=== PATIENT | female | born 1985 | race African-American/Black ===

== ENCOUNTER 2020-08-19 16:09 | Inpatient (IN) | payer OTHER, SELFPAY ==
[~2020-08-19] VITALS: Ht 154.9 cm; Wt 106.6 kg
[~2020-08-19 16:09] MED LIST: NORE1TAB74 PO
[2020-08-19 16:36] VITALS: BP_SYST 136
--- NOTE | 2020-08-19 16:45 | NUR ---
Patient to ER bed 05 to gown for evaluation. Side rails up.
--- NOTE | 2020-08-19 17:04 | NUR ---
Patient AAO and ambulatory arrived to ED stating she received abnormal labs from her PCP and was recommeneded to come nearest ER for infusion. Patient stated feeling tired for the past days. stated having 0/10 pain on the pain scale. VSS. Denies having SOB or chest pain. Waiting for MD evaluation.
--- NOTE | 2020-08-19 17:10 | NUR ---
# 18 gauge angiocath placed to Left AC. Use of asceptic technique. Opsite placed over site. Blood return noted. Blood for lab drawn from site. Flushed with 10 cc of normal saline. No evidence of infiltration noted. Patient tolerated well.
--- NOTE | 2020-08-19 17:10 | NUR ---
labs drawn from PIV start. sent to lab for analysis.
--- NOTE | 2020-08-19 17:59 | NUR ---
Dr. Borja at bedside for patient evaluation.
[2020-08-19] MEDS ORDERED: NACL 0.9% 1,000 ML IV ONE (18:15)
[2020-08-19 18:18] LABS: BASOPHILS # (AUTO) 0.1 K/uL (0.0-0.2); EOSINOPHILS # (AUTO) 0.4 K/uL (0.0-0.4); HEMATOCRIT 23.7 % (36-48); LYMPHOCYTES # (AUTO) 2.3 K/uL (1.0-5.5); MEAN CORPUSCULAR HEMOGLOBIN 17 pg (27-31); MEAN CORPUSCULAR VOLUME 59 fL (79.0-98.0); MONOCYTES # (AUTO) 0.5 K/uL (0.0-1.0); RED BLOOD CELL COUNT(AUTO) 4.03 MIL/uL (4.2-6.2)
[2020-08-19 18:22] LABS: BASOPHILS % (AUTO) 0.7 % (0.0-2.0); CALCIUM 8.3 mg/dL (8.4-11.0); CREATININE 0.73 mg/dL (0.55-1.30); EOSINOPHILS % (AUTO) 4.7 % (0.0-4.0); LYMPHOCYTES % (AUTO) 25.2 % (20.5-51.5); MEAN CORPUSCULAR HGB CONC 30 % (32-36); MONOCYTES % (AUTO) 5.8 % (1.7-9.3); NEUTROPHILS # (AUTO) 5.9 K/uL (1.8-7.7); NEUTROPHILS % (AUTO) 63.6 % (40.0-70.0); PLATELET COUNT (AUTO) 379 K/uL (130-430); POTASSIUM 3.7 mmol/L (3.5-5.1); RED CELL DISTRIBUTION WIDTH 20.8 % (9.0-15.0); WHITE BLOOD COUNT (AUTO) 9.2 K/uL (4.8-10.8)
[2020-08-19 18:31] LABS: INR 0.9 (0.8-1.2); PROTHROMBIN TIME 9.3 SECS (9.5-12.5)
[2020-08-19 18:34] LABS: BILIRUBIN,URINE NEGATIVE (NEGATIVE); BLOOD, URINE NEGATIVE (NEGATIVE); CLARITY/URINE CLEAR (CLEAR); COLOR,URINE YELLOW (YELLOW); GLUCOSE,URINE NEGATIVE (NEGATIVE); KETONES,URINE NEGATIVE (NEGATIVE); LEUKOCYTE ESTERASE ,URINE NEGATIVE (NEGATIVE); NITRITE, URINE NEGATIVE (NEGATIVE); PH,URINE 6.5 (5.0-8.0); PROTEIN URINE NEGATIVE (NEGATIVE); UROBILINOGEN,URINE 0.2 (0.2-1.0)
--- NOTE | 2020-08-19 19:05 | NUR ---
Report given to Ward ROMERO
--- NOTE | 2020-08-19 19:15 | NUR ---
Received report from Nikky ROMERO for continuity of care. pt resting comfortably in bed, respirations even and unlabored, NAD.
--- NOTE | 2020-08-19 19:45 | NUR ---
Patient will be admitted to care of DR. LILLY. Admitted to MED SURG unit. Belongings list completed. Complete and up to date summary report printed. SBAR report to be given at bedside with opportunity for questions.
--- NOTE | 2020-08-19 20:10 | NUR ---
belongings done at bedside and recorded.
--- NOTE | 2020-08-19 20:49 | NUR ---
Transfer to [facility]. IV present no sign or symptom of infiltration. Report given to Oracio ROMERO.
--- NOTE | 2020-08-19 20:50 | NUR ---
Patient's code status is FULL CODE paperwork completed and placed in chart.
--- NOTE | 2020-08-19 21:03 | NUR ---
ADMIT NOTE Received pt from ER to the floor with a diagnosis of anemia. Admission process initiated. patient oriented to pain management, safety and call light-teach back done.
[2020-08-19 21:12] VITALS: BP_SYST 130
--- NOTE | 2020-08-19 21:43 | NUR ---
initial notes: pt is awake, alert, oriented x4, no sign of distress, no sob, no pain. room air, vital sign within normal limits, ambulatory with steady gait. no skin issue. ivf infusing to left ac gauge 18- intact and patent. orient to room, explain poc, safety and and call light. pt verbalized understanding. needs attended. call light in reach, side rails up. low bed position, will follow-up.
[2020-08-19] MEDS ORDERED: ALBUTEROL SULFATE 0.083% 2.5 MG/3 ML VIAL.NEB INH PRN (22:15)
[2020-08-19] MEDS ORDERED: HYDROcodone/ACETAMIN 5-325 MG TAB (NORCO/ VICODIN) PO PRN (22:15)
[2020-08-19] MEDS ORDERED: MORPHINE 4 MG/ML INJ. SYRINGE IVP PRN (22:15)
[2020-08-19] MEDS ORDERED: ACETAMINOPHEN 325 MG TABLET PO PRN (22:15)
[2020-08-19] MEDS ORDERED: NALOXONE HCL 0.4 MG/ML AMP (NARCAN) IVP PRN (22:15)
[2020-08-19] MEDS ORDERED: ONDANSETRON HCL 4 MG/2 ML VIAL IVP PRN (22:15)
[2020-08-19 22:35] VITALS: BP_SYST 136
--- NOTE | 2020-08-19 23:43 | NUR ---
pt is still awake, alert. no pain, no sob, stable. needs attended. call light in reach. will follow-up.
[2020-08-20 00:52] VITALS: BP_SYST 128
--- NOTE | 2020-08-20 04:10 | NUR ---
PRBC still not availabole due to antibodies present.
--- NOTE | 2020-08-20 06:00 | NUR ---
seen by dr. keiry chapin order other unit of prbc. is aware about the blood transfusion is not start due antibodies and lab draw is delay until the pt got all the prbc.
--- NOTE | 2020-08-20 06:56 | NUR ---
closing: pt is resting, no pain, stable. iv lock intact and patent. needs attended the whole shift. call light with the pt. will sbar reporting to am rn.
--- NOTE | 2020-08-20 08:00 | NUR ---
Note Pt sitting up in bed eating her breakfast. No SOB/resp distress or pain/discomfort was noted. Pt ambulates to restroom with steady gait. IV in left AC intact and patent. No needs noted. Call light within reach.
[2020-08-20 08:05] VITALS: BP_SYST 140
--- NOTE | 2020-08-20 09:15 | NUR ---
Note Pt receiving her first unit PRBC.
--- NOTE | 2020-08-20 11:30 | NUR ---
Note Dr Holman on the floor at pt's bedside answering questions/concerns. Dr Holman requested HH/blood labs be drawn after first unit of PRBC's completed.
[2020-08-20 12:22] VITALS: BP_SYST 135
--- NOTE | 2020-08-20 12:30 | NUR ---
Note Pt ambulates to restroom with IV pole and blood draw done at this time. Pt denies any needs at this time. Call light within reach.
[2020-08-20 12:58] LABS: ALBUMIN 3.1 g/dL (3.4-4.8); CALCIUM 7.8 mg/dL (8.4-11.0); CREATININE 0.62 mg/dL (0.55-1.30); POTASSIUM 3.9 mmol/L (3.5-5.1); TOTAL BILIRUBIN 0.6 mg/dL (0.0-1.0)
[2020-08-20 13:08] LABS: BASOPHILS % (AUTO) 0.6 % (0.0-2.0); EOSINOPHILS # (AUTO) 0.3 K/uL (0.0-0.4); EOSINOPHILS % (AUTO) 4.4 % (0.0-4.0); HEMATOCRIT 25.7 % (36-48); HEMOGLOBIN 7.7 g/dL (12.0-16.0); LYMPHOCYTES # (AUTO) 1.9 K/uL (1.0-5.5); LYMPHOCYTES % (AUTO) 28.5 % (20.5-51.5); MEAN CORPUSCULAR HEMOGLOBIN 19 pg (27-31); MEAN CORPUSCULAR HGB CONC 30 % (32-36); MEAN CORPUSCULAR VOLUME 62 fL (79.0-98.0); MONOCYTES # (AUTO) 0.5 K/uL (0.0-1.0); MONOCYTES % (AUTO) 7.3 % (1.7-9.3); NEUTROPHILS # (AUTO) 3.9 K/uL (1.8-7.7); NEUTROPHILS % (AUTO) 59.2 % (40.0-70.0); PLATELET COUNT (AUTO) 337 K/uL (130-430); RED BLOOD CELL COUNT(AUTO) 4.12 MIL/uL (4.2-6.2); RED CELL DISTRIBUTION WIDTH 24.9 % (9.0-15.0); WHITE BLOOD COUNT (AUTO) 6.6 K/uL (4.8-10.8)
--- NOTE | 2020-08-20 14:25 | NUR ---
Note Dr Holman called with results of HH drawn at 1240pm, 2nd unit of PRBC to be transfused a this time. MIS called.
[2020-08-20 16:18] VITALS: BP_SYST 123
--- NOTE | 2020-08-20 18:00 | NUR ---
Note Pt's 2nd blood transfusion has been completed and LAC IV intact and patent - saline locked at this time. Pt was checked on q1' and PRN all shift for needs and care. Pt denies any weakness or lightheadedness all shift. Call light within reach.
--- NOTE | 2020-08-20 19:32 | NUR ---
Dietitian Recommendations * Recommend continuing regular diet * CHRISTIANO provided general healthy Mediterranean diet and high-iron foods [address] Please refer to Nutrition Assessment for details. Addendum: 08/20/20 at [address] Amended: Links added.
--- NOTE | 2020-08-20 19:35 | NUR ---
initial notes: pt is awake, alert, oriented x 4, watching tv. no c/o pain. no sob. room air, vital sign within normal limits, ivlock left ac gauge 18- intact and patent. explain poc, safety and and call light. pt verbalized understanding. needs attended. call light in reach, side rails up. low bed position, will follow-up.
[2020-08-20 19:58] VITALS: BP_SYST 134
[2020-08-21] VITALS: BP_SYST 133
--- NOTE | 2020-08-21 | NUR ---
pt is still awake, alert. no pain, no sob, stable. ambulate to bathroom, steady gait. vital sign with normal limit. needs attended. call light in reach. will follow-up.
--- NOTE | 2020-08-21 03:12 | NUR ---
resting, no pain, no sob, stable.
--- NOTE | 2020-08-21 07:12 | NUR ---
closing: pt is in bed resting. no pain, stable. iv lock intact and patent. ambulatory with steady gait. needs attended the whole shift. call light with the pt. will sbar reporting to am rn.
--- NOTE | 2020-08-21 07:30 | NUR ---
Patient AOx4; ambulatory, no c/o pain or distress. iv on left FA, #18. Instructed on discharge planning. Call light in place, bed locked at the lowest position.
[2020-08-21 07:44] LABS: BASOPHILS # (AUTO) 0.1 K/uL (0.0-0.2); BASOPHILS % (AUTO) 0.7 % (0.0-2.0); EOSINOPHILS # (AUTO) 0.4 K/uL (0.0-0.4); EOSINOPHILS % (AUTO) 4.9 % (0.0-4.0); HEMATOCRIT 28.7 % (36-48); HEMOGLOBIN 8.9 g/dL (12.0-16.0); LYMPHOCYTES # (AUTO) 1.7 K/uL (1.0-5.5); LYMPHOCYTES % (AUTO) 22.5 % (20.5-51.5); MEAN CORPUSCULAR HEMOGLOBIN 20 pg (27-31); MEAN CORPUSCULAR HGB CONC 31 % (32-36); MEAN CORPUSCULAR VOLUME 65 fL (79.0-98.0); MONOCYTES # (AUTO) 0.5 K/uL (0.0-1.0); MONOCYTES % (AUTO) 6.7 % (1.7-9.3); NEUTROPHILS # (AUTO) 4.9 K/uL (1.8-7.7); NEUTROPHILS % (AUTO) 65.2 % (40.0-70.0); PLATELET COUNT (AUTO) 316 K/uL (130-430); RED BLOOD CELL COUNT(AUTO) 4.44 MIL/uL (4.2-6.2); WHITE BLOOD COUNT (AUTO) 7.5 K/uL (4.8-10.8)
[2020-08-21 07:55] LABS: ALBUMIN 3.1 g/dL (3.4-4.8); CALCIUM 7.9 mg/dL (8.4-11.0); CREATININE 0.65 mg/dL (0.55-1.30); POTASSIUM 3.9 mmol/L (3.5-5.1); TOTAL BILIRUBIN 0.4 mg/dL (0.0-1.0)
[2020-08-21 08:00] VITALS: BP_SYST 130
[2020-08-21 08:31] LABS: RED CELL DISTRIBUTION WIDTH 27.2 % (9.0-15.0)
--- NOTE | 2020-08-21 12:00 | NUR ---
D/C Patient Patient given medication reconciliation form and D/C instructions. Exit Care provided. Patient verbalized understanding. MD discussed with patient the results and treatment provided. Ambulatory with steady gait for discharge to home. Patient in stable condition, ID band removed. IV catheter removed, intact and dressing applied, no active bleeding. Patient educated on pain management and follow up care. All belongings sent with patient.
== END 2020-08-21 12:10 | disposition home or self-care (01) | DRG 761 ==
LOC: SED 16:09 → SMU 19:36
PROVIDERS: ADMIT Internal Medicine Hospice and Palliative Medicine; ATTEND Internal Medicine Hospice and Palliative Medicine
PROC: 30233N1 Transfusion of Nonautologous Red Blood Cells into Peripheral Vein, Percutaneous Approach (ICD-10-PCS; principal; 2020-08-20)
DX: N92.0 Excessive and frequent menstruation with regular cycle (principal); D64.9 Anemia, unspecified; J44.9 Chronic obstructive pulmonary disease, unspecified; Z20.822 Contact with and (suspected) exposure to COVID-19
CPT/HCPCS: 36415; 76856-TC; 80048; 80053; 81003; 85025; 85610-TC; 85730-TC; 86870; 86886; 86900; 86901; 86920; J7050; P9021

== ENCOUNTER 2022-10-25 15:23 | Emergency (ER) | payer OTHER ==
[~2022-10-25] VITALS: Ht 154.9 cm; Wt 99.8 kg
--- NOTE | 2022-10-25 15:30 | NUR ---
ER at bedside examining patient.
[2022-10-25 15:38] VITALS: BP_SYST 126
--- NOTE | 2022-10-25 16:06 | NUR ---
pt bib mother. c/o low hemoglobin count. pt states to have been doing a follow up with PCP when she was informed of the abnormal lab values. pt states 6.3 hemoglobin count was given to her. pt states past hx of anemia and heavy periods, but states heavy periods subsided about 3 months ago due to her being put on control. pt states to not be taking her iron pills as prescribed. pt denies N/V/D. pt denies SOB. Pt does state some fatigue. Pt denies being on blood thinners. Pt VSS. Afebrile. AAOX4. Pt speaking full complete sentences. Pt in bed with side rails up.
--- NOTE | 2022-10-25 16:08 | NUR ---
blood drawn and taken to lab.
[2022-10-25 16:11] LABS: EOSINOPHILS # (AUTO) 0.2 K/uL (0.0-0.4); LYMPHOCYTES # (AUTO) 2.6 K/uL (1.0-5.5); MEAN CORPUSCULAR HEMOGLOBIN 17 pg (27-31); MEAN CORPUSCULAR HGB CONC 30 % (32-36); MEAN CORPUSCULAR VOLUME 57 fL (79.0-98.0); MONOCYTES # (AUTO) 0.4 K/uL (0.0-1.0); NEUTROPHILS # (AUTO) 4.4 K/uL (1.8-7.7); WHITE BLOOD COUNT (AUTO) 7.8 K/uL (4.8-10.8)
--- NOTE | 2022-10-25 16:15 | NUR ---
critical lab HEMO 5.9 HEMAT 19.7 NOTIFIED
[2022-10-25 16:16] LABS: BASOPHILS # (AUTO) 0.1 K/uL (0.0-0.2); BASOPHILS % (AUTO) 1.4 % (0.0-2.0); EOSINOPHILS % (AUTO) 2.8 % (0.0-4.0); MONOCYTES % (AUTO) 5.6 % (1.7-9.3); NEUTROPHILS % (AUTO) 57.2 % (40.0-70.0); PLATELET COUNT (AUTO) 484 K/uL (130-430); RED BLOOD CELL COUNT(AUTO) 3.45 MIL/uL (4.2-6.2); RED CELL DISTRIBUTION WIDTH 19.4 % (9.0-15.0)
[2022-10-25 16:21] LABS: HEMATOCRIT 19.7 % (36-48); HEMOGLOBIN 5.9 g/dL (12.0-16.0)
--- NOTE | 2022-10-25 16:37 | NUR ---
blood transfusion consent signed by MD and PT
[2022-10-25 16:38] LABS: CREATININE 0.83 mg/dL (0.55-1.30)
[2022-10-25 17:08] LABS: ALBUMIN 3.3 g/dL (3.4-4.8); TOTAL BILIRUBIN 0.2 mg/dL (0.0-1.0)
--- NOTE | 2022-10-25 19:16 | NUR ---
Report given to Addie ROMERO.
--- NOTE | 2022-10-26 00:01 | NUR ---
transfusion started waited by pt bedside 15 after start of transfusion mins pt vss, not complaints, non febrile, bed in lowest position, safety rails up. nad, vss, even unlabored respirations, offered pt pudding crackers water. pt positioned to comfort.
--- NOTE | 2022-10-26 02:50 | NUR ---
PT TOLERATED 1ST TRANSFUSION WELL, NEW IV SITE STARTED ON LEFT AC 18G. SECOND TRANSFUSION STARTED, STAYED BY BEDSIDE FOR 15 MINS, PT DID NOT HAVE ANY SYMPTOMS OF REACTION, VSS, BED LOW SAFETY PERCAUTIONS IN PLACE. PT CONNECTED TO CONTINUAL VS MONITOR PT GIVEN SNACK AND WATER, ROUND ON PT EVERY 30- 45 MINS
--- NOTE | 2022-10-26 04:09 | NUR ---
TRANSFUSION COMPLETE, VSS, PT UP STEADY GAIT TO RESTROOM. PENDING CBC RESULTS FOR POSSIBLE DISCHARGE, PT VOICES NO COMPLAINTS CONNECTED TO CONTINUED MONITOR. SAFETY PERCAUTIONS IN PLACE. VSS EVEN UNLABORED BREATHING
[2022-10-26] MEDS ORDERED: FERR236T3 PO (04:33)
[2022-10-26 04:56] LABS: BASOPHILS # (AUTO) 0.1 K/uL (0.0-0.2); BASOPHILS % (AUTO) 0.9 % (0.0-2.0); EOSINOPHILS # (AUTO) 0.3 K/uL (0.0-0.4); EOSINOPHILS % (AUTO) 3.9 % (0.0-4.0); HEMATOCRIT 26.2 % (36-48); LYMPHOCYTES # (AUTO) 2.3 K/uL (1.0-5.5); MEAN CORPUSCULAR HEMOGLOBIN 20 pg (27-31); MEAN CORPUSCULAR HGB CONC 31 % (32-36); MEAN CORPUSCULAR VOLUME 64 fL (79.0-98.0); MONOCYTES # (AUTO) 0.5 K/uL (0.0-1.0); MONOCYTES % (AUTO) 6.6 % (1.7-9.3); NEUTROPHILS # (AUTO) 4.5 K/uL (1.8-7.7); NEUTROPHILS % (AUTO) 58.6 % (40.0-70.0); PLATELET COUNT (AUTO) 415 K/uL (130-430); RED BLOOD CELL COUNT(AUTO) 4.09 MIL/uL (4.2-6.2); WHITE BLOOD COUNT (AUTO) 7.7 K/uL (4.8-10.8)
[2022-10-26 05:02] LABS: HEMOGLOBIN 8.1 g/dL (12.0-16.0)
[2022-10-26 05:45] VITALS: BP_SYST 117
--- NOTE | 2022-10-26 05:47 | NUR ---
Patient given written and verbal discharge instructions and verbalizes understanding. ER MD discussed with patient the results and treatment provided. Patient in stable condition. ID arm band removed. IV catheter removed intact and dressing applied, no active bleeding. Rx of FERROUS given. Patient educated on pain management and to follow up with PMD. Pain Scale . Opportunity for questions provided and answered. Medication side effect fact sheet provided.
== END 2022-10-26 05:47 | disposition home or self-care (01) ==
LOC: SED 15:23
DX: D64.9 Anemia, unspecified (principal); Z79.899 Other long term (current) drug therapy
CPT/HCPCS: 99291; 36430; 86870; 80053; 85025; 86886; 86900; 86901; 86920; 36415; 99292; P9021